=== PATIENT | male | born 2000 ===

== ENCOUNTER 2023-07-18 00:52 | Outpatient (CLI) | payer BC ==
[2023-07-18] VITALS (20 sets, daily range): BP systolic 99–120; BP diastolic 52–76; PULSE 51–103
== END 2023-07-18 23:59 | disposition home or self-care (01) ==
LOC: CARD DIAG 00:52
PROVIDERS: ATTEND Internal Medicine Interventional Cardiology
DX: R55 Syncope and collapse (principal)
CPT/HCPCS: 93660